=== PATIENT | female | born 1950 | race African-American/Black ===

== ENCOUNTER → 2017-06-09 | Outpatient (RCR) | payer MEDICARE, OTHER ==
[~2017-06-09] MED LIST: BENADRYL25 MG ORAL; KEFLEX500 MG ORAL
== END | disposition home or self-care (01) ==
LOC: PTY 05-27 09:00
DX: M76.61 Achilles tendinitis, right leg (principal); M71.9 Bursopathy, unspecified; M70.971 Unspecified soft tissue disorder related to use, overuse and pressure, right ankle and foot
CPT/HCPCS: 82962; 97035; 97110; 97140; 97161; G8978; G8979

== ENCOUNTER 2017-07-05 09:53 | Outpatient (RCR) | payer MEDICARE, OTHER | END 2017-07-09 | disposition home or self-care (01) | LOC: PTY 09:53 | DX: M76.61 Achilles tendinitis, right leg (principal); M70.971 Unspecified soft tissue disorder related to use, overuse and pressure, right ankle and foot | CPT/HCPCS: 97110; 97140; G0283 ==

== ENCOUNTER → 2017-08-09 | Outpatient (RCR) | payer MEDICARE, OTHER | END | disposition home or self-care (01) | LOC: PTY 07-18 10:11 | DX: M76.61 Achilles tendinitis, right leg (principal); M70.971 Unspecified soft tissue disorder related to use, overuse and pressure, right ankle and foot | CPT/HCPCS: 97035; 97110; 97140; G0283; G8978; G8979 ==

== ENCOUNTER 2017-09-06 09:56 | Outpatient (RCR) | payer MEDICARE, OTHER | END 2017-09-08 | disposition home or self-care (01) | LOC: PTY 09:56 | DX: M76.61 Achilles tendinitis, right leg (principal); M70.971 Unspecified soft tissue disorder related to use, overuse and pressure, right ankle and foot ==

== ENCOUNTER 2017-09-27 10:23 | Outpatient (RCR) | payer MEDICARE, OTHER | END 2017-10-09 | disposition home or self-care (01) | LOC: PTY 10:23 | DX: M76.61 Achilles tendinitis, right leg (principal); M67.01 Short Achilles tendon (acquired), right ankle ==

== ENCOUNTER 2017-10-25 10:00 | Outpatient (RCR) | payer MEDICARE, OTHER | END 2017-11-09 | disposition home or self-care (01) | LOC: PTY 10:00 | DX: M76.61 Achilles tendinitis, right leg (principal); M67.01 Short Achilles tendon (acquired), right ankle ==

== ENCOUNTER 2017-12-22 10:00 | Outpatient (RCR) | payer MEDICARE, OTHER | END 2018-01-07 | disposition home or self-care (01) | LOC: PTY 10:00 | DX: M25.561 Pain in right knee (principal) | CPT/HCPCS: 97110; 97140; 97161; G0283; G8978; G8979 ==

== ENCOUNTER 2018-01-23 10:55 | Outpatient (RCR) | payer MEDICARE, OTHER | END 2018-02-06 | disposition home or self-care (01) | LOC: PTY 10:55 | DX: M25.561 Pain in right knee (principal) | CPT/HCPCS: 97110; 97140; G0283 ==